=== PATIENT | male | born 1955 | race Caucasian/White ===

== ENCOUNTER 2020-09-16 02:35 | Outpatient (CLI) | payer SELFPAY ==
[2020-09-16 12:42] LABS: ALT 31 U/L (16-63); Calculated LDL 92 mg/dL (<100); Cholesterol 157 mg/dL (<200); HDL Cholesterol 55 mg/dL (40-60); Triglyceride 53 mg/dL (<150)
== END 2020-09-16 02:55 ==
PROVIDERS: PCP Family Medicine; Visit Provider Family Medicine
DX: E78.5 Hyperlipidemia, unspecified (principal)
CPT/HCPCS: 36415; 80061; 84460

== ENCOUNTER 2023-03-11 00:59 | Outpatient (CLI) | payer OTHER, SELFPAY ==
--- NOTE | 2023-03-11 08:15 | DI.MRI_ITS ---
Exam(s) MR LOWER JOINT LT WO EXAM: MR LOWER JOINT LT WO CLINICAL HISTORY: persistent pain post lifting injury,strain lt knee, [id number] TECHNIQUE: Multiplanar multisequence MRI of the knee was performed. COMPARISON: There are no plain films available at time of this MRI interpretation. FINDINGS: EFFUSION: There is moderate size joint effusion. There is also a prominent Quinteros cyst in the poplite al fossa measures approximately 7 cm craniocaudal by 0.7 cm AP by 1.8 cm wide. MARROW:No evidence of fracture. There is some subarticular bone edema in the outer 3rd of the medial tibial plateau. There are no significant osseous lesions. PATELLOFEMORAL COMPARTMENT: The quadriceps tendon is intact. The patellar ligament is intact. There is some surface irregularity signal at the mid aspect of the retropatellar cartilage small fiss ure at this level. No osteochondral defect evident at level. There is also a small focus of signal abnormality in the retropatellar cartilage over the medial facet with focal area of cartilage narrowi ng at this level and mild subarticular edema in the posterior patella at this level. There is no int raosseous signal to suggest recent patellar dislocation. There are no patellar retinacular tears. CRUCIATE LIGAMENTS: The anterior cruciate ligament is intact.The posterior cruciate ligament is intac t. MEDIAL COMPARTMENT/MEDIAL MENISCUS: There is a tear in the posterior horn of the medial meniscus at t he level the root. The root is detached from tibia. Also myxoid degeneration signal noted in the ou ter 3rd of the posterior horn. Mild extrusion but no gutter descent. The anterior horn of the media l meniscus appears intact. There is. Moderate cartilage loss over the weight-bearing surface of the medial femoral condyle. Also in the m edial tibial plateau with subjacent mild marrow edema. There is no formed degenerative subarticular cyst in the tibial plateau at this level. MEDIAL COLLATERAL LIGAMENT: Intact LATERAL COMPARTMENT/LATERAL MENISCUS: There is signal abnormality at the level of the root of the pos terior horn of the lateral meniscus. This parallels the inferior surface of the disc but does not ap pear to truly violates the articular surface. Probably not a true tear. Anterior horn appears unrem arkable. There is minimal if any cartilage loss over the lateral femoral condyle no subarticular alicia ma evident in the lateral compartment. ILIOTIBIAL BAND: Intact LATERAL COLLATERAL LIGAMENT COMPLEX: The fibular collateral ligament is intact. The biceps femoris t endon is intact.Popliteus muscle and tendon are intact. IMPRESSION: 1. The main finding here is a tear of the posterior horn of the medial meniscus which is predominantl y at the level of the root of the posterior horn, as described above. Anterior horn appears intact 2. Signal abnormality also evident at the level of the root of the posterior horn of the lateral meni scus but this is not truly violates the articular surface and the root remains attached. Therefore n ot a true tear at this level. 3. There is moderate cartilage loss over the weight-bearing surface of the medial femoral condyle wit h mild subarticular edema at this level but no discrete osteochondral defect. No osteophytes. 4. Two areas of focal cartilage loss noted in the retropatellar cartilage. Not appear full-thickness . 5. Cruciate and collateral ligament complexes are intact, as is the iliotibial band. 6. There is a moderate size joint effusion and there is a Quinteros cyst in the medial popliteal fossa m easuring 7 cm cephalocaudal length. This may be partially ruptured as there is subjacent fluid along the surface of the adjacent medial gastrocnemius muscle. DATA REPOSITORY:
== END 2023-03-11 01:19 ==
LOC: DI 01:00
PROVIDERS: PCP Family Medicine; Visit Provider Nurse Practitioner Family
DX: M23.222 Derangement of posterior horn of medial meniscus due to old tear or injury, left knee; M25.462 Effusion, left knee; M25.562 Pain in left knee
CPT/HCPCS: 73721

== ENCOUNTER 2023-04-26 10:00 | Outpatient (CLI) | payer OTHER, SELFPAY ==
--- NOTE | 2023-04-26 09:45 | DI.RAD_ITS ---
Exam(s) XR KNEE LT 3V AP,LAT,RONAL EXAM: XR KNEE LT 3V AP,LAT,RONAL CLINICAL HISTORY: left knee pain. TECHNIQUE: 2D digital imaging was performed. Three views. COMPARISON: No exams were available for comparison FINDINGS: BONES: No acute fracture is present. No bony destructive lesion is seen. JOINTS: Mild narrowing of the medial femoral tibial joint space and mild periarticular spurring. Mil d spurring at the patellofemoral joint. No joint effusion is seen. SOFT TISSUE: Vascular calcifications. IMPRESSION: Mild degenerative changes DATA REPOSITORY: RADIATION DOSE DELIVERED:
== END 2023-04-26 10:01 | disposition home or self-care (01) ==
LOC: DIORS 10:00
PROVIDERS: PCP Family Medicine; Referring Provider Family Medicine; Visit Provider Student in an Organized Health Care Education/Training Program
DX: M17.12 Unilateral primary osteoarthritis, left knee (principal)
CPT/HCPCS: 73562

== ENCOUNTER 2023-05-26 01:26 | Outpatient (CLI) | payer MEDICARE, OTHER, SELFPAY ==
[2023-05-26 12:32] LABS: ALT 75 U/L (16-63); AST 42 U/L (15-37); Albumin 3.6 g/dL (3.4-5.0); Alkaline Phosphatase 120 U/L (46-116); Anion Gap 7.5 mmol/L (3-11); BUN 21 mg/dL (7-18); Bilirubin, Total 0.4 mg/dL (0.2-1.0); CO2 29.5 mmol/L (21.0-32.0); Calcium 9.1 mg/dL (8.5-10.1); Calculated LDL 82 mg/dL (<100); Chloride 102 mmol/L (98-107); Cholesterol 151 mg/dL (<200); Estimated GFR 83.52 (mL/min/1.73m2); Glucose 103 mg/dL (74-106); HDL Cholesterol 63 mg/dL (40-60); Sodium 139 mmol/L (136-145); Total Protein 7.5 g/dL (6.4-8.2); Triglyceride 31 mg/dL (<150)
== END 2023-05-26 01:27 | disposition home or self-care (01) ==
LOC: LOS 01:26
PROVIDERS: PCP Family Medicine; Visit Provider Family Medicine
DX: E78.00 Pure hypercholesterolemia, unspecified (principal)
CPT/HCPCS: 36415; 80053; 80061

== ENCOUNTER 2023-08-03 12:00 | Outpatient (CLI) | payer MEDICARE, OTHER, SELFPAY ==
[2023-08-03 12:23] LABS: ALT 41 U/L (16-63); AST 35 U/L (15-37); Albumin 4.2 g/dL (3.4-5.0); Alkaline Phosphatase 105 U/L (46-116); Anion Gap 9.6 mmol/L (3-11); BUN 18 mg/dL (7-18); Bilirubin, Total 0.5 mg/dL (0.2-1.0); CO2 28.4 mmol/L (21.0-32.0); Calcium 9.6 mg/dL (8.5-10.1); Chloride 101 mmol/L (98-107); Estimated GFR 83.52 (mL/min/1.73m2); Glucose 101 mg/dL (74-106); Sodium 139 mmol/L (136-145); Total Protein 8.1 g/dL (6.4-8.2)
[2023-08-04 10:40] LABS: Hepatitis A Antibody IgM Negative (Negative); Hepatitis B Core Antibody Negative (Negative); Hepatitis B surface Ag Negative (Negative); Hepatitis C Ab w Rflx HCV PCR Negative (Negative)
== END 2023-08-03 12:01 | disposition home or self-care (01) ==
LOC: LBO 12:00
PROVIDERS: PCP Family Medicine; Visit Provider Family Medicine
DX: R79.89 Other specified abnormal findings of blood chemistry (principal); Z00.00 Encounter for general adult medical examination without abnormal findings
CPT/HCPCS: 36415; 80053; 86704; 86709; 86803; 87340

== ENCOUNTER → 2023-09-28 02:06 | Outpatient (CLI) | payer MEDICARE, OTHER, SELFPAY ==
--- NOTE | 2023-09-28 07:30 | DI.US_ITS ---
Exam(s) US AAA SCREENING EXAM: US AAA SCREENING CLINICAL HISTORY: screening for aaa, smoker, z72.0 COMPARISON: No exams were available for comparison FINDINGS: Abdominal Aorta: Proximal: 2.3 cm Mid: 2.2 cm Distal: 2.0 cm Iliacs: Right: 1.3 cm Left: 1.3 cm IMPRESSION: No evidence of abdominal aortic aneurysm. DATA REPOSITORY:
--- NOTE | 2023-09-28 10:30 | DI.CTLCSR_ITS ---
Exam(s) CT CHEST LUNG CANCER SCREEN EXAM: CT CHEST LUNG CANCER SCREEN CLINICAL HISTORY: Screening for lung cancer,current smoker TECHNIQUE: Imaging Protocol: Axial computed tomography images with coronal and sagittal reformatted images were created and reviewed. Low dose screening protocol. COMPARISON: CR PORTABLE CHEST ONE VIEW from 10/23/2017 FINDINGS: Tracheobronchial tree: No bronchiectasis or mucus plugging.. Mediastinum and Damaris: No dominant adenopathy or fluid collection. Pulmonary parenchyma: No consolidation or dominant measurable mass. Minimal emphysematous changes. Lung Nodules: 4mm mary fissural nodule at right minor fissure. Pleura: No effusion. No pneumothorax. Heart: The heart is not dilated. coronary artery calcifications are seen. Aorta: Ascending 4cm. Upper abdomen: Unremarkable. Bones: Unremarkable for age. Soft Tissues: Unremarkable. IMPRESSION: No suspicious pulmonary nodules. Lung RADS Cat 2 - Benign Appearance / Behavior: Nodules with a very low likelihood of becoming a clin ically active cancer due to size or lack of growth Lung-RADS 1.0 CATEGORIES: Category 0 - Prior chest CT exam(s) being located for comparison. Category 1 - Annual screening in 12 months. No nodules or definitely benign nodules. Category 2 - Annual screening in 12 months. Benign appearance. Nodules with low likelihood of becomin g active cancer. Category 3 - 6-month follow-up. Probably benign. Short-term follow-up suggested. Nodules with low lik elihood of becoming active cancer. Category 4A - 3-month follow-up and CT/PET if >8 mm in size. Suspicious finding. Findings which requi re additional testing. Category 4B - Findings which require additional testing and tissue sampling. Category 4X - Category 3 or 4 nodules with additional features or imaging findings that increases the suspicion of malignancy. Modifier S- Potentially clinically significant findings (non lung cancer) RADIATION DOSE DELIVERED: Total DLP DATA REPOSITORY: All CT scans at this facility are submitted to the National Radiology Data Registry (NRDR) Dose Index Registry (DIR) with the [employer] (ACR). RADIATION OPTIMIZATION: All CT scans at this facility use at least one of these dose optimization te chniques: automated exposure control; mA and/or kV adjustment per patient size (includes targeted exa ms where dose is matched to clinical indication); or iterative reconstruction.
== END ==
PROVIDERS: PCP Family Medicine; Visit Provider Family Medicine
DX: F17.210 Nicotine dependence, cigarettes, uncomplicated (principal); Z12.2 Encounter for screening for malignant neoplasm of respiratory organs; Z13.6 Encounter for screening for cardiovascular disorders
CPT/HCPCS: 71271; 76706

== ENCOUNTER 2023-11-28 05:25 | Outpatient (CLI) | payer MEDICARE, OTHER, SELFPAY ==
[2023-11-28 17:55] LABS: PSA, Screening 0.5 ng/mL (<=4.5)
== END 2023-11-28 05:26 | disposition home or self-care (01) ==
LOC: LOS 05:25
PROVIDERS: PCP Family Medicine; Visit Provider Family Medicine
DX: Z12.5 Encounter for screening for malignant neoplasm of prostate (principal)
CPT/HCPCS: 36415; 84153

== ENCOUNTER → 2024-01-23 03:23 | Outpatient (CLI) | payer MEDICARE, OTHER, SELFPAY ==
--- NOTE | 2024-01-23 06:45 | DI.MRI_ITS ---
Exam(s) MR UPPER JOINT LT WO EXAM: MR UPPER JOINT LT WO CLINICAL HISTORY: LT SHOULDER PAIN,M25.512,LIKELY ROTATOR CUFF TEAR TECHNIQUE: Multiplanar multisequence MRI of the shoulder was performed. COMPARISON: There are no plain films of the shoulder valuable at time of this MRI interpretation. FINDINGS: MARROW:There is no evidence of fracture, Hill-Sachs deformity, nor ominous osseous lesions. GLENOHUMERAL JOINT: Small-moderate size joint effusion. No obvious loose intra-articular bodies in t he glenohumeral joint nor within the biceps tendon sheath. Mild cartilage degenerative changes. No osteophytes. No degenerative subarticular cysts. ROTATOR CUFF MECHANISM: AC JOINT/ACROMIUM: There degenerative changes in the AC joint. Some impingement at this level.. There is no evidence of os acromiale. Supraspinatus: There is a large full-thickness tear of the supraspinatus with retraction musculotendi nous junction to the medial 3rd of the humeral head. Large bare area gap with continuity of fluid be tween the joint space and the subacromial space is evident. The AP measurement of the tear is 3 cm. No prominent muscle atrophy. Infraspinatus: Mild insertional signal. No high-grade tear. No atrophy. Teres Minor: Intact. No evidence of tear nor muscle atrophy. Subscapularis/anterior cuff: Intact. No abnormal signal at the level of the multipennate insertional fibers. No significant tear nor atrophy. BICEPS TENDON: Exhibits normal position within the intertubercular groove. No evidence of tear. Mild fluid in the tendon sheath noted LABRUM: Mild signal in the superior labrum posterior to the biceps insertion. No prominent SLAP tear . The posterior labrum appears intact. Anterior labrum appears intact. Inferior labrum appears int act. No obvious tear of the inferior glenohumeral ligament. QUADRILATERAL SPACE: No evidence of mass in the region of the axillary nerve and dorsal circumflex hu meral vessels. Visualized triceps muscle at this level appears unremarkable. IMPRESSION: 1. There is a large full-thickness tear of the rotator cuff supraspinatus tendon with retraction of t he musculotendinous junction to the medial 3rd of the humeral head, leaving a large bare area on the superior aspect of the humeral head with continuity of fluid between the joint space and subacromial space. AP bare area tear measurement is 3 cm. 2. Insertional signal abnormality in the infraspinatus but no high-grade tear. Anterior cuff-subscap ularis is intact. 3. No tear of the biceps tendon and no obvious labral tears nor evidence of paralabral cyst. 4. Small-moderate size joint effusion which is in continuity with the subacromial space. No loose i ntra-articular bodies. No prominent cartilage loss nor degenerative subarticular cysts and no osteop hytes. 5. There are significant degenerative changes noted in the AC joint DATA REPOSITORY:
== END ==
PROVIDERS: PCP Family Medicine; Visit Provider Family Medicine
DX: M75.122 Complete rotator cuff tear or rupture of left shoulder, not specified as traumatic (principal)
CPT/HCPCS: 73221

== ENCOUNTER 2024-01-31 15:41 | Outpatient (CLI) | payer MEDICARE, OTHER, SELFPAY ==
--- NOTE | 2024-01-31 13:15 | DI.RAD_ITS ---
Exam(s) XR SHOULDER LT COMPLETE 2+V EXAM: XR SHOULDER LT COMPLETE 2+V CLINICAL HISTORY: evaluation of shoulder pain. TECHNIQUE: 2D digital imaging was performed of the left shoulder. Two images were obtained. Grashe y and axillary views were obtained. COMPARISON: No exams were available for comparison FINDINGS: BONES: No acute fracture is present. No bony destructive lesion is seen. JOINTS: No dislocation present. Mild degenerative changes are seen at the acromioclavicular joint. T he glenohumeral joint is well maintained. SOFT TISSUE: The visualized lungs are clear. IMPRESSION: Degenerative changes of the AC joint. DATA REPOSITORY: RADIATION DOSE DELIVERED:
== END 2024-01-31 15:42 | disposition home or self-care (01) ==
LOC: DIORS 15:42
PROVIDERS: PCP Family Medicine; Referring Provider Family Medicine; Visit Provider Student in an Organized Health Care Education/Training Program
DX: S46.012D Strain of muscle(s) and tendon(s) of the rotator cuff of left shoulder, subsequent encounter; W19.XXXD Unspecified fall, subsequent encounter
CPT/HCPCS: 99214; 73030

== ENCOUNTER 2024-08-18 17:16 | Emergency (ER) | payer MEDICARE, OTHER, SELFPAY ==
[2024-08-18] VITALS (14 sets, daily range): BP systolic 128–168; BP diastolic 72–76; PULSE 66–83; RESP 13–30; TEMP 35.8–36.9; O2SAT 93–98
--- NOTE | 2024-08-18 17:15 | RT.EKG_ITS ---
APPROVED REPORT Exam: Resting ECG Reason for Exam: ? seizure Patient Location: E HR:68 bpm ECG Measurements Heart Rate 68 AXIS DC 153 P 45 QRSd 102 QRS 10 QT 416 T 29 QTc 443 Conclusion Sinus rhythm 68 no stemi
--- NOTE | 2024-08-18 17:43 | NUR.NOTE ---
Nursing Note: scot says he feels very foggy right now but lucid
--- NOTE | 2024-08-18 17:45 | DI.CT_ITS ---
Exam(s) CT HEAD WO EXAM: CT HEAD WO CLINICAL HISTORY: ams. TECHNIQUE: Imaging Protocol: Axial computed tomography images with coronal and sagittal reformatted images were created and reviewed COMPARISON: No exams were available for comparison FINDINGS: There are no skull fractures. There is no fluid in the visualized paranasal sinuses. There is no evidence of intracranial hemorrhage, mass effect, or shift of midline structures. There are no extra-axial fluid collections. The ventricles are not enlarged or shifted and there is no blo od within the ventricular system nor within the basal cisterns. IMPRESSION: No acute intracranial findings on this noninfused CT scan of the brain. RADIATION DOSE DELIVERED: 906.23mGy.cm Total DLP DATA REPOSITORY: All CT scans at this facility are submitted to the National Radiology Data Registry (NRDR) Dose Index Registry (DIR) with the [employer] (ACR). RADIATION OPTIMIZATION: All CT scans at this facility use at least one of these dose optimization te chniques: automated exposure control; mA and/or kV adjustment per patient size (includes targeted exa ms where dose is matched to clinical indication); or iterative reconstruction.
--- NOTE | 2024-08-18 17:59 | DI.RAD_ITS ---
Exam(s) XR CHEST 2V PA LATERAL EXAM: XR CHEST 2V PA LATERAL CLINICAL HISTORY: presyncope. TECHNIQUE: 2D digital imaging was performed. COMPARISON: No exams were available for comparison FINDINGS: 2 views: Heart size is normal. The mediastinum is not widened. Lungs are clear. No infiltrates nor pleural effusions. IMPRESSION: No acute pulmonary findings. DATA REPOSITORY: RADIATION DOSE DELIVERED:
[2024-08-18 18:08] LABS: Abs Immature Grans 0.03 10^3/uL (0.0-0.06); Absolute Basophil Count 0.07 10^3/uL (0.0-0.2); Absolute Eosinophil Count 0.25 10^3/uL (0.0-0.7); Absolute Monocyte Count 0.89 10^3/uL (0.1-0.8); Absolute Neutrophil Count 5.32 10^3/uL (1.2-6.7); Basophils % 0.7 %; Eosinophils % 2.4 %; HGB 13.3 g/dL (13.5-17.5); Immature Grans % 0.3 %; Lymphocytes % 36.1 %; MCH 30.9 pg (27.0-33.0); MCHC 33.3 % (32.0-36.0); MCV 93 fL (80-95); MPV 10.7 fL (8.0-11.0); Monocytes % 8.7 %; Neutrophils % 51.8 %; Platelet Count 218 10^3/uL (130-400); RBC 4.31 10^6/uL (4.36-5.78); RDW 13.2 % (11.8-14.1); RDW-SD 45.8 fL; WBC 10.26 10^3/uL (4.4-10.8)
--- NOTE | 2024-08-18 18:30 | NUR.NOTE ---
Nursing Note: asked patient if he would be able to give a urine sample. He said I just dont think i would be able to right now but I will think about it
[2024-08-18 18:31] LABS: ALT 41 U/L (16-63); AST 35 U/L (15-37); Albumin 3.6 g/dL (3.4-5.0); Alkaline Phosphatase 102 U/L (46-116); Anion Gap 9.4 mmol/L (3-11); BUN 17 mg/dL (7-18); Bilirubin, Total 0.37 mg/dL (0.2-1.0); CO2 27.6 mmol/L (21.0-32.0); CREATININE 1.1 mg/dL (0.70-1.30); Calcium 8.7 mg/dL (8.5-10.1); Chloride 106 mmol/L (98-107); Estimated GFR 74.04 (mL/min/1.73m2); Glucose 120 mg/dL (74-106); Magnesium 1.9 mg/dL (1.8-2.4); Potassium 3.6 mmol/L (3.5-5.1); Sodium 143 mmol/L (136-145); TSH (W/Ref FT4) 1.35 uIU/mL (0.36-3.74); Troponin I 9 ng/L (<or=76)
[2024-08-18 18:51] LABS: Troponin I 11 ng/L (<or=76)
--- NOTE | 2024-08-18 19:04 | ED.GENADUL_ITS ---
Discharge Plan Disposition Patient Disposition: Home Condition: Stable Discharge Details Clinical Impression: Pre-syncope Primary Care Provider: Prema Hancock ED Provider: Brisa Cam Home Meds and New Rx's Prescriptions: Continued atorvastatin 80 mg tablet 80 mg PO DAILY Qty: 90 4RF ezetimibe 10 mg tablet 10 mg PO DAILY Qty: 90 3RF Discharge Instructions Instructions: Syncope (Fainting) (DC) Additional Instructions: Please follow-up with primary care physician on Tuesday for reassessment, recommend outpatient Holter monitor Your tests today including your CT of your head and diagnostic blood work are all reassuringly normal Please return earlier should you have new or worsening complaints Referrals: Prema Hancock MD [Primary Care Provider] - HPI General Date/Time Provider Initiated Documentation: 08/18/24 17:20 . HPI Narrative: This 68-year-old male presents with report of alteration in mental status while at work today. 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 He felt like he might pass out or have a seizure. He is out of his seizure for approximately 10 years. 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 Tonic-clonic seizures were approximately 30 years ago and patient consumed alcohol on a daily basis. He was actually taking Dilantin at this time and has not taken any Dilantin for approximately 7 years as he was cleared by neurology. Last partial seizure was approximately 10 years ago. Patient does not report having seizure today or any loss of consciousness and is at this time feeling mild symptomatic improvement although anxious. Denies any headache or any additional complaints at this time. Denies any known sick contacts. Denies any chest pain or shortness of breath denies any vision change or strength or sensation change. Denies any difficulty with speech. Related Data Home Medications ?Medication ?Instructions ?Recorded ?Confirmed atorvastatin 80 mg tablet 80 mg PO DAILY #90 tab-caps 09/14/23 08/18/24 ezetimibe 10 mg tablet 10 mg PO DAILY #90 tabs 09/22/23 08/18/24 Previous Rx's ?Medication ?Instructions ?Recorded atorvastatin 80 mg tablet 80 mg PO DAILY #90 tab-caps 09/14/23 ezetimibe 10 mg tablet 10 mg PO DAILY #90 tabs 09/22/23 Allergies Allergy/AdvReac Type Severity Reaction Status Date / Time No Known Allergies Allergy Verified 08/18/24 17:25 General Stated Complaint: Seizure USMAN: 2 Exam Narrative Exam Narrative: Alert and oriented 68-year-old male in no acute distress, he was a gram reactive to light and accommodation, no visible signs of head trauma, lungs clear to auscultation, cardiac rate rhythm regular, no abdominal tenderness, GCS 15, alert and oriented x 4, negative [id number], negative heel ba, negative pronator drift, cranial nerves II through XII intact Course Vital Signs Vital signs: Vital Signs Pulse Oximetry 97 08/18/24 17:20 Temperature 35.8 C L 08/18/24 17:21 Temperature Source Oral 08/18/24 17:21 Pulse 72 08/18/24 18:01 Pulse 80 08/18/24 18:50 Respiratory Rate 23 08/18/24 18:50 Respiratory Effort Normal 08/18/24 17:37 Respiratory Depth Normal 08/18/24 17:32 Blood Pressure 168/75 H 08/18/24 18:01 Blood Pressure Mean 104 08/18/24 18:01 Blood Pressure Position Sitting 08/18/24 17:21 Pulse Oximetry 94 08/18/24 18:50 Oxygen Delivery Method Room Air 08/18/24 17:21 Oxygen Flow Rate 0 08/18/24 17:21 Pain Level 0 08/18/24 17:21 Lab/Test Results Lab/Test Results: Laboratory Tests Range/Units 08/18/24 08/18/24 17:25 18:27 WBC (4.4-10.8) 10^3/uL 10.26 RBC (4.36-5.78) 10^6/uL 4.31 L Hgb (13.5-17.5) g/dL 13.3 L Hct (40.0-50.0) % 40.0 MCV (80-95) fL 93 MCH (27.0-33.0) pg 30.9 MCHC (32.0-36.0) % 33.3 RDW (11.8-14.1) % 13.2 Plt Count (130-400) 10^3/uL 218 MPV (8.0-11.0) fL 10.7 Immature Gran % % 0.3 Neutrophils % % 51.8 Lymphocytes % % 36.1 Monocytes % % 8.7 Eosinophils % % 2.4 Basophils % % 0.7 Nucleated RBC % (0.0-0.3) % 0.0 Absolute Neutrophils (1.2-6.7) 10^3/uL 5.32 Absolute Lymphocytes (1.2-3.4) 10^3/uL 3.70 H Absolute Monocytes (0.1-0.8) 10^3/uL 0.89 H Absolute Eosinophils (0.0-0.7) 10^3/uL 0.25 Absolute Basophils (0.0-0.2) 10^3/uL 0.07 Sodium (136-145) mmol/L 143 Potassium (3.5-5.1) mmol/L 3.6 Chloride (98-107) mmol/L 106 Carbon Dioxide (21.0-32.0) mmol/L 27.6 Anion Gap (3-11) mmol/L 9.4 BUN (7-18) mg/dL 17 Creatinine (0.70-1.30) mg/dL 1.1 Est GFR (CKD-EPI 2020) (mL/min/1.73m2) 74.04 Glucose (74-106) mg/dL 120 H Calcium (8.5-10.1) mg/dL 8.7 Magnesium (1.8-2.4) mg/dL 1.9 Total Bilirubin (0.2-1.0) mg/dL 0.37 AST (15-37) U/L 35 ALT (16-63) U/L 41 Alkaline Phosphatase (46-116) U/L 102 Troponin I (<or=76) ng/L 9 11 Total Protein (6.4-8.2) g/dL 7.0 Albumin (3.4-5.0) g/dL 3.6 TSH (0.36-3.74) uIU/mL 1.35 Medical Decision Making 68-year-old male presenting with presyncopal presentation, no seizure activity noted, CT head and chest x-ray were ordered and negative per radiology interpretation and my review. CBC, CMP, did not show evidence of acute abnormality. Orthostatics are negative and patient feels symptomatically improved. He is encouraged to follow-up with his primary care physician tomorrow. Troponins x 2 negative. Return precautions reviewed and patient expressed understanding. Patient discharged home in stable condition with stable vitals Quality:SDOH Health Related Social Needs: No Data to Display PFSH All Active Problems (Updated 08/18/24 @ 20:48 by LALY eRyes) Pre-syncope (Acute) Traumatic tear of left rotator cuff (Acute ~09/04/23) Left shoulder pain (Chronic) Cigarette smoker (Acute) Anxiety (Acute 05/12/17) manages himself Hyperlipidemia (Acute) Tobacco use disorder (Acute) Acute medial meniscus tear of left knee (Acute 11/05/22) Medical History Coronary artery disease (~09/2017) NSTEMI Sep 2017. Stent to diagonal artery Lactose intolerance (05/12/17) History of alcoholism quit in 09/1994; had medical detox in [place]; attended AA x 2 years. Surgical History S/P vasectomy Family History Mother Heart disease Father Heart disease Sister , CAR CRASH at age 52. Breast cancer Brother Hyperlipidemia Brother Liver cancer Social History Smoking/Tobacco Use Status: Current every day Tobacco Type: cigarettes Years smoked: 47 Tobacco: How many years used: 46 Quit status: considering quitting Second Hand Exposure: Yes Counseling given: provider counseling Smoking risk assessment performed?: Yes Alcohol Intake: former Year quit: 1994 Drug use: Never Substance use type: does not use Adopted: No Caregiver/Support person: No Foster care: No Household members: spouse and other Details: Grandson Housing: house Number of Children: 1 Communication Needs: None Education Level: college Details: Associate degree Do you need help understanding health information?: Never current occupation: works in [employer] dept at [employer] Pets and animals: Yes Pets and animals: cat(s) and dog(s) Sexually active: Yes Do you think of yourself as: straight/heterosexual Current gender identity: male What is your relationship status?: How often do you talk on the phone with friends or family?: once per week How often do you get together with friends or relatives?: once per week How often do you attend nondenominational or rastafarian services?: decline to answer Do you belong to any clubs or organized social groups?: no Panel score (0-1 are the most socially isolated patients): 1 What type of physical activity do you participate in: none Tori/Jain: Zoroastrianism Seatbelt use: always Helmet use: No Drive intox or ride w/intox 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
--- NOTE | 2024-08-18 19:07 | DI.VRAD_ITS ---
PROCEDURE INFORMATION: Exam: XR Chest Exam date and time: 08/18/2024 6:14 PM Age: 68 years old Clinical indication: Other: Presyncope TECHNIQUE: Imaging protocol: Radiologic exam of the chest. Views: 2 views. Total images: 2 COMPARISON: CT CHEST LUNG CANCER SCREEN 09/28/2023 10:28 AM FINDINGS: Lungs: Lungs are clear without consolidation. Pleural spaces: No pleural effusion or pneumothorax. Heart/Mediastinum: Unremarkable. Bones/joints: Unremarkable. IMPRESSION: No acute findings. Dictated and Authenticated by: Bob Steiner MD. Ordering:FARHAD Ledezma MD
--- NOTE | 2024-08-18 19:32 | DI.VRAD_ITS ---
PROCEDURE INFORMATION: Exam: CT Head Without Contrast Exam date and time: 08/18/2024 6:12 PM Age: 68 years old Clinical indication: Other: AMS TECHNIQUE: Imaging protocol: Computed tomography of the head without contrast. Total images: 223 COMPARISON: No relevant prior studies available. FINDINGS: Brain: No intra or extra axial bleed. No edema or mass effect. The central rbadford structures and cortical ribbon are maintained. Cerebral ventricles: No significant hydrocephalus. Basal cisterns are patent. Paranasal sinuses: No mucosal thickening or fluid levels. Mastoid air cells: No mastoid effusion. Bones: Unremarkable. No acute fracture. Soft tissues: Unremarkable. IMPRESSION: No acute intracranial abnormality. Dictated and Authenticated by: Bob Steiner MD. Ordering:FARHAD Ledezma MD
[2024-08-18 20:04] LABS: Bilirubin Negative (Negative); Blood Negative (Negative); Clarity Clear (Clear); Glucose Negative (Negative); Ketones Negative (Negative); Leukocyte Esterase Negative (Negative); Nitrite Negative (Negative); Urobilinogen 0.2 mg/dL (Up to 0.2); pH 5.5 (5-8)
== END 2024-08-18 21:23 | disposition home or self-care (01) ==
PROVIDERS: Emergency Provider Physician Assistant; PCP Family Medicine
DX: R55 Syncope and collapse (principal); I25.10 Atherosclerotic heart disease of native coronary artery without angina pectoris; F17.210 Nicotine dependence, cigarettes, uncomplicated
CPT/HCPCS: 36415; 80053; 82962; 87426; 93005; 99285; 70450; 71046; 81003; 83735; 84443; 84484; 85025; 93010; 99284

== ENCOUNTER 2024-10-08 02:07 | Outpatient (CLI) | payer MEDICARE, OTHER, SELFPAY ==
--- NOTE | 2024-10-08 06:30 | DI.CTLCSR_ITS ---
Exam(s) CT CHEST LUNG CANCER SCREEN EXAM: CT CHEST LUNG CANCER SCREEN CLINICAL HISTORY: Screening for lung cancer,current smoker, f17.210 TECHNIQUE: Imaging Protocol: Axial computed tomography images with coronal and sagittal reformatted images were created and reviewed. Low dose screening protocol. COMPARISON: No exams were available for comparison FINDINGS: Tracheobronchial tree: No bronchiectasis or mucus plugging. Mediastinum and [place]: No dominant adenopathy or fluid collection. Pulmonary parenchyma: No consolidation or dominant measurable mass. Minimal emphysematous changes. No significant interstitial changes. Lung Nodules: None stable 4 millimeter nodule at the right minor fissure. Pleura: No effusion. No pneumothorax. Heart: The heart is not dilated. Moderate coronary artery calcifications are seen. No pericardial eff usion. Aorta: Ascending aorta measures 4.1 cm. Upper abdomen: Unremarkable. Bones: Unremarkable for age. Soft Tissues: Unremarkable. IMPRESSION: No suspicious pulmonary nodules. Lung RADS Cat 2 - Benign Appearance / Behavior: Nodules with a very low likelihood of becoming a clin ically active cancer due to size or lack of growth Lung-RADS 1.0 CATEGORIES: Category 0 - Prior chest CT exam(s) being located for comparison. Category 1 - Annual screening in 12 months. No nodules or definitely benign nodules. Category 2 - Annual screening in 12 months. Benign appearance. Nodules with low likelihood of becomin g active cancer. Category 3 - 6-month follow-up. Probably benign. Short-term follow-up suggested. Nodules with low lik elihood of becoming active cancer. Category 4A - 3-month follow-up and CT/PET if >8 mm in size. Suspicious finding. Findings which requi re additional testing. Category 4B - Findings which require additional testing and tissue sampling. Category 4X - Category 3 or 4 nodules with additional features or imaging findings that increases the suspicion of malignancy. Modifier S- Potentially clinically significant findings (non lung cancer) RADIATION DOSE DELIVERED: !Error Total DLP DATA REPOSITORY: All CT scans at this facility are submitted to the National Radiology Data Registry (NRDR) Dose Index Registry (DIR) with the [employer] ([employer]). RADIATION OPTIMIZATION: All CT scans at this facility use at least one of these dose optimization te chniques: automated exposure control; mA and/or kV adjustment per patient size (includes targeted exa ms where dose is matched to clinical indication); or iterative reconstruction.
== END 2024-10-08 02:27 ==
LOC: DI 02:07
PROVIDERS: PCP Family Medicine; Visit Provider Family Medicine
DX: F17.210 Nicotine dependence, cigarettes, uncomplicated (principal); Z12.2 Encounter for screening for malignant neoplasm of respiratory organs
CPT/HCPCS: 71271

== ENCOUNTER 2024-10-29 13:30 | Outpatient (CLI) | payer MEDICARE, OTHER, SELFPAY ==
--- NOTE | 2024-10-29 08:30 | DI.RAD_ITS ---
Exam(s) XR CHEST 2V PA LATERAL EXAM: XR CHEST 2V PA LATERAL CLINICAL HISTORY: cough r/o pneumonia, R05.9 TECHNIQUE: 2D digital imaging was performed. Two views. COMPARISON: CR,XR XR CHEST 2V PA LATERAL from 08/18/[address] CHEST LUNG CANCER SCREEN from 10/08/2024 FINDINGS: HEART: Normal size. Aorta: Not dilated. PULMONARY VASCULATURE: Normal. MEDIASTINUM: Unremarkable. LUNGS: Clear. PLEURAL SPACE: No pleural effusion or pneumothorax. BONE:Unremarkable for age. SOFT TISSUES: Unremarkable. IMPRESSION: No acute abnormality. DATA REPOSITORY: RADIATION DOSE DELIVERED:
== END 2024-10-29 13:50 ==
LOC: DI 13:37
PROVIDERS: PCP Family Medicine; Visit Provider Physician Assistant
DX: R05.9 Cough, unspecified (principal)
CPT/HCPCS: 71046